=== PATIENT | female | born 1995 | race Caucasian/White ===

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

== ENCOUNTER 2017-04-10 02:09 | Emergency (ER) | payer OTHER ==
[~2017-04-10] VITALS: Ht 172.7 cm; Wt 89.7 kg
[~2017-04-10 02:09] MED LIST: AZITTAB PO; DIPH1TAB PO; PRED10TA PO
[2017-04-10 02:14] VITALS: Ht 172.7 cm; Wt 89.7 kg
[2017-04-10] MEDS ORDERED: PRLSR20 PO (02:34)
[2017-04-10] MEDS ORDERED: VITACAP26 PO (02:35)
[2017-04-10] MEDS ORDERED: FERR18TA2 PO (02:36)
[2017-04-10] MEDS ORDERED: CEFDINIR 300 MG CAP PO STA (02:52)
[2017-04-10] MEDS ORDERED: CEFD300C2 PO (03:10)
[2017-04-10] MEDS ORDERED: PRED50TA PO (03:10)
--- NOTE | 2017-04-10 03:11 | EMERGENCY ROOM VISIT NOTE ---
History First contact with patient: 02:16 Chief Complaint: SORETHROAT Stated Complaint: SWOLLEN TONSILS,SORETHROAT History of Present Illness The patient is a 21 year old female who presents to the Emergency Room with complaints of gradually worsening throat pain since yesterday afternoon. Since the time of onset, patient has continued to have difficulty swallowing as her tonsils feel swollen and "scratchy". She now states that she seems to be having trouble breathing, due to the swelling, and the front of her neck is tender. Patient states that she has felt chilled but she denies having a fever. She does state that she has had fullness to her midchest, which worsens when standing, but she believes that this is related to her throat pain. She denies cough, feeling short of breath, or having pain radiating down her arms or through to her back. Patient states that she has a history of strep throat and mononucleosis in November. Her symptoms today feel similar to that time. She denies abdominal pain, nausea, vomiting, diarrhea or urinary symptoms. Patient states that she came to the ED this evening because she was having increased pain and difficulty swallowing, which has made it hard for her to take medications PO at home. Review of Systems A complete 10 point review of systems was reviewed with the patient with pertinent positives and negatives as per history of present illness. All else were negative. Past Medical/Surgical History Medical Problems: (1) GERD (gastroesophageal reflux disease) (2) Mononucleosis (3) Strep pharyngitis Social History Smoking Status: Never Smoker Marital Status: single Housing Status: lives with family Occupation Status: student Current/Historical Medications Scheduled Cefdinir (Omnicef), 1 CAP PO BID Ferrous Fumarate (Iron), Unknown Dose PO DAILY Omeprazole (Prilosec), Unknown Dose PO BID Prednisone (Prednisone), 50 MG PO DAILY Vitamins C & E (Vitamin C), 1 CAP PO DAILY Allergies Coded Allergies: Amoxicillin (Verified Allergy, Intermediate, Rash/Hives, 04/10/17) Physical Exam Vital Signs Date Time Temp Pulse Resp B/P (MAP) Pulse Ox O2 Delivery O2 Flow Rate FiO2 04/10/17 03:39 36.7 68 18 126/69 98 04/10/17 02:14 36.7 68 18 99 Room Air 04/10/17 02:14 99 Room Air Physical Exam VITALS: Vitals are noted on the nurse's note and reviewed by myself. Vital signs stable. GENERAL: This is a 21-year-old female, in no acute distress, nondiaphoretic, well-developed well-nourished. SKIN: The skin was without rashes. EARS: External auditory canals clear, tympanic membranes pearly mahajan without erythema or effusion bilaterally. EYES: Pupils equal round and reactive to light and accommodation. MOUTH: Mucous membranes moist. Tonsils are enlarged and erythematous bilaterally. There is exudate present on the right tonsil. No evidence of peritonsillar abscess. Airway patent. NECK: Supple without nuchal rigidity. Tender anterior lymphadenopathy. HEART: Regular rate and rhythm without murmurs gallops or rubs. LUNGS: Clear to auscultation bilaterally without wheezes, rales or rhonchi. NEURO: Patient was alert and oriented to person place and time. Medical Decision & Procedures Medications Administered Medications (Trade) Dose Ordered Sig/Manuel Route Start Time Stop Time Status Last Admin Dose Admin Cefdinir (Omnicef Cap) 300 mg ONE STAT PO 04/10/17 02:52 04/10/17 02:54 DC 04/10/17 03:32 300 MG Prednisone (PredniSONE TAB) 50 mg NOW STAT PO 04/10/17 02:52 04/10/17 02:54 DC 04/10/17 03:33 50 MG Medical Decision Differential diagnosis includes strep pharyngitis, mononucleosis, viral pharyngitis, retropharyngeal abscess, among others. The patient is a 21-year-old female who presents today complaining of sore throat. Rapid strep was negative, however exam consistent with strep pharyngitis and I will treat with antibiotics and steroids. Patient was instructed on conservative measures. She should follow-up with her primary care provider for further evaluation or return here for any worsening of her current condition. No evidence of peritonsillar abscess on exam. Based on the patient's presentation and work up, I feel the patient is stable for outpatient treatment. The patient was educated to return to the emergency department for any worsening of their current condition or new/concerning symptoms. She will follow up with her PCP. Medication reconciliation: I attest that I have personally reviewed the patient 's current medication list. Blood pressure screening: Patient was found to have normal blood pressure on screening and does not require follow-up. Impression Primary Impression: Acute pharyngitis Departure Information Dispostion Home / Self-Care Condition GOOD Prescriptions Prednisone (Prednisone) 50 Mg Tab 50 MG PO DAILY for 3 Days, #3 TAB Prov: Shannon Powell PA-C 04/10/17 Cefdinir (OMNICEF) 300 Mg Cap 1 CAP PO BID for 7 Days, #14 CAP Prov: Shannon Powell PA-C 04/10/17 Referrals Rod Hatch M.D. (PCP) Patient Instructions My [facility] Additional Instructions You were seen in the emergency department for your sore throat. The results of your rapid strep screen were found to be negative. You will be contacted in 48- 72 hrs with the results of your pending strep culture. You were prescribed Omnicef to be taken twice daily for 7 days. This is an antibiotic. All antibiotics have the potential to cause diarrhea. Stop this medication and contact a medical provider if you were to develop any significant adverse side effects including: wheezing, shortness of breath, passing out, vomiting, or a diffuse rash. Always take antibiotics as directed and COMPLETE the ENTIRE course regardless of the improvement of your symptoms. Prednisone as prescribed. For pain and fever control, you can use the following [id number] medicines (if >12 yo): - Regular strength (325mg/tab) Tylenol (acetaminophen) 2 tabs every 4-6 hours as needed. Do not exceed 12 tablets in a 24 hour period. Avoid taking more than 4 grams (4000 mg) of Tylenol per day. This includes any other sources of acetaminophen you may take on a regular basis. - Regular strength (200 mg/tab) Advil (ibuprofen) 1-2 tabs every 4-6 hours as needed. Do not exceed a dose of 3200 mg per day. - For best results, alternate dosing of Tylenol and Advil. In addition to your prescribed medications, you can also use the following home remedies: - Warm salt-water gargles 3 times per day can soothe your throat and help to fight infection. - Warm tea with honey can soothe your throat. Return to the emergency department if your symptoms persist or worsen over the next 2-3 days despite treatment course outlined above. Return to the emergency department if you develop the following symptoms of: inability to swallow solids , liquids, or drool; excessive wheezing or inability to catch your breath; or intractable fever or pain. Follow up with your primary care provider in 2-3 days from today's emergency department visit. Problem Qualifiers Primary Impression: Acute pharyngitis Pharyngitis/tonsillitis etiology: unspecified etiology Qualified Codes: J02.9 - Acute pharyngitis, unspecified
[2017-04-10 03:39] VITALS: BP 126/69; PULSE 68; TEMP 36.7; O2SAT 98
--- NOTE | 2017-04-12 17:48 | Pharmacy Progress Note ---
ED Pharmacist Progress Note Date of Service: Apr 12, 2017. Patient's mother called with concerns that her daughter may not have been prescribed the correct ABX for "strep throat". I reviewed the patient's record and the patient's back-up GAS cx is growing Grp B Strep. She was prescribed Cefdinir which would cover Grp-B strep if this was the infecting organism. Mother was satisfied with this information.
[2017-05-10] MEDS ORDERED: IRON PO (15:47)
[2017-05-10] MEDS ORDERED: VITAMIN C PO (15:47)
== END 2017-04-10 03:35 | disposition home or self-care (01) ==
LOC: C.EDB 02:11
DX: J02.9 Acute pharyngitis, unspecified (principal); K21.9 Gastro-esophageal reflux disease without esophagitis; Z79.899 Other long term (current) drug therapy

== ENCOUNTER → 2017-05-12 | Day surgery (SDC) | payer OTHER ==
[2017-05-10 15:47] VITALS: Ht 174 cm; Wt 86.8 kg
[~2017-05-12] VITALS: Ht 174 cm; Wt 86.8 kg
[~2017-05-12] MED LIST changes: +ATROPINE SULFATE 0.1 MG/ML 5ML SYR IV PRN; -AZITTAB PO; +BACITRACIN/POLYMYXIN B OINT 15 GM TUBE EXT ONE; +DEXAMETHASONE SOD INJ 4 MG/ML VIAL IV PRN; +DEXAMETHASONE SOD INJ 4 MG/ML VIAL ONE; -DIPH1TAB PO; +EpHEDrine SULFATE INJ 50 MG/ML AMP IV PRN; +FENTANYL CITRATE INJ 50 MCG/1 ML 2 ML VIAL IV PRN; +FENTANYL CITRATE INJ 50 MCG/1 ML 2 ML VIAL ONE; +IRON PO; +KETOROLAC TROMETHAMINE 30 MG/ML VIAL IV. PRN; +LABETALOL HCL IV 5 MG/ML 20ML IV PRN; +LACTATED RINGER'S 1000ML 1,000 ML IV SCH; +LIDOCAINE 2% JELLY 5 ML TUBE EXT ONE; +LIDOCAINE HCL 2% 2 ML VIAL (20MG/ML) ONE; +METOCLOPRAMIDE HCL INJ 5 MG/ML 2 ML VIAL IV PRN; +MIDAZOLAM HCL 1 MG/ML 2ML VIAL ONE; +MoRPHine SULFATE 10 MG/ML CARP/VIAL IV PRN; +ONDANSETRON INJ 2 MG/ML 2 ML VIAL IV PRN; +ONDANSETRON INJ 2 MG/ML 2 ML VIAL ONE; +OXYCODONE HCL SOLN 5 MG/5 ML UDC PO PRN; +OXYMETAZOLINE HCL 0.05% NA SPR 15 ML BTL ONE; +PHENYLEPHRINE 100MCG/ML 5ML SYR IV PRN; -PRED10TA PO; +PROPOFOL IV EMULSION 10 MG/ML 20 ML VIAL IV ONE; +VITAMIN C PO
--- NOTE | 2017-05-12 06:38 | History & Physical Bridge - [place] ---
H&P Re-Evaluation Bridge Note: I have examined the patient, reviewed the History & Physical and in the interval since the performance of the History & Physical I have noted the following changes of clinical significance: No changes noted
--- NOTE | 2017-05-12 08:38 | [facility] Operative Report ---
Operative Report Operative Date May 12, 2017. Pre-Operative Diagnosis Recurrent Acute Tonsillitis, Tonsillar Hypertrophy Post-Operative Diagnosis same Procedure(s) Performed Tonsillectomy Surgeon Dr. Jv Fang Animal Humane Agent Supervisor Surgeon(s) 0 Estimated Blood Loss 5ML Findings 1. 3+ TONSILS Specimens A. Right Tonsil B. Left Tonsil I attest to the content of the Intraoperative Record and any orders documented therein. Any exceptions are noted below.
--- NOTE | 2017-05-12 08:40 | Discharge Instructions ---
Discharge Instructions Date of Service May 12, 2017. Admission Reason for Admission: Rec Acute Tonsillitis, Tonsillar Hypertrophy Discharge Discharge Diagnosis / Problem: SAME Discharge Goals Goal(s): Therapeutic intervention Activity Recommendations Activity Limitations: as noted below LIGHT ACTIVITY FOR 2 WEEKS AND NO DRIVING WHILE ON NARCOTICS . Current Hospital Diet Patient's current hospital diet: Full Liquid Diet Discharge Diet Recommended Diet: Full Liquid Diet Diet Texture: Mechanical Soft (ground) Procedures Procedures Performed: Tonsillectomy Pending Studies Studies pending at discharge: no Medical Emergencies . Who to Call and When: Medical Emergencies: If at any time you feel your situation is an emergency, please call 911 immediately. . Non-Emergent Contact Non-Emergency issues call your: Surgeon . . "Provider Documentation" section prepared by Alex Fang. . VTE Core Measure Inpt VTE Proph given/why not?: SCD's
--- NOTE | 2017-05-12 09:36 | OPERATIVE REPORT ---
DATE OF OPERATION: 05/12/2017 PREOPERATIVE DIAGNOSES: 1. Recurrent acute tonsillitis. 2. Tonsillar hypertrophy. POSTOPERATIVE DIAGNOSES: 1. Recurrent acute tonsillitis. 2. Tonsillar hypertrophy. PROCEDURE: Bilateral tonsillectomy. SURGEON: Dr. Alex Fang. ANESTHESIA: General endotracheal. ESTIMATED BLOOD LOSS: 5 mL. FINDINGS: 1. Normal palate. 2. 3+ cryptic tonsils bilaterally. SPECIMENS: Right and left tonsil for permanent pathological assessment. COMPLICATIONS: None. INDICATIONS FOR THE PROCEDURE: The patient is a 21-year-old female with the above-mentioned history, presents for the above-mentioned procedure on an outpatient elective basis. DESCRIPTION OF PROCEDURE: After an informed consent was obtained from the patient, the patient was wheeled to the operating room and placed on the operating table in the supine position. Monitors were placed. After induction of general endotracheal anesthesia, the table was turned 90 degrees. The patient's head and neck were gently extended. Antibiotic ointment was applied to the lips. A mouth gag was carefully inserted, opened, and stabilized on a roll of towels. The palate was inspected and this was found to be normal. An Allis clamp was used to grasp the right tonsil in the superior pole and Bovie electrocautery was used to remove the tonsil in the capsular plane with care to preserve the underlying mucosa and musculature of the anterior and posterior tonsillar pillars. The left tonsil was then removed in a similar fashion. Intraoperative findings were 3+ cryptic tonsils bilaterally. These were sent separately for permanent pathologic assessment. The mouth gag was released for 1 minute. This was reopened and hemostasis was confirmed. An orogastric tube was placed and the stomach was suctioned free of any stomach contents. This marked the end of the case. The patient tolerated the procedure well. There were no apparent complications. The patient was extubated and transferred to recovery room in stable condition. I attest to the content of the Intraoperative Record and any orders documented therein. Any exception s are noted below.
--- NOTE | 2017-05-12 09:58 | Anesthesia Progress Nt - [facility] ---
Anesthesia Post Op Note Date & Time May 12, 2017 at 09:58 Vital Signs Pain Intensity: 7.0 Vital Signs Past 12 Hours Date Time Temp Pulse Resp B/P (MAP) Pulse Ox O2 Delivery O2 Flow Rate FiO2 05/12/17 09:41 68 18 138/89 (105) 100 Room Air 05/12/17 09:34 36.4 71 16 140/82 100 Room Air 05/12/17 09:31 140/82 05/12/17 09:27 73 20 05/12/17 09:27 76 20 98 05/12/17 09:26 140/75 05/12/17 09:22 77 21 100 05/12/17 09:22 76 21 05/12/17 09:21 113/84 05/12/17 09:17 47 7 05/12/17 09:17 47 7 100 05/12/17 09:16 132/85 05/12/17 09:12 66 23 100 05/12/17 09:12 65 23 05/12/17 09:11 134/71 05/12/17 09:09 60 11 05/12/17 09:09 60 11 100 05/12/17 09:06 144/74 05/12/17 09:04 73 17 100 05/12/17 09:04 74 17 05/12/17 08:59 75 17 100 05/12/17 08:59 74 17 05/12/17 08:56 125/65 05/12/17 08:54 56 14 100 05/12/17 08:54 56 14 05/12/17 08:51 126/79 05/12/17 08:49 70 3 05/12/17 08:49 70 3 116/86 100 05/12/17 08:49 36.0 72 12 116/84 100 Humidified Oxygen 6 Mask 05/12/17 06:33 36.8 72 16 142/77 (98) 99 Room Air Notes Mental Status: alert / awake / arousable, participated in evaluation Pt Amnestic to Procedure: Yes Nausea / Vomiting: adequately controlled Pain: adequately controlled Airway Patency, RR, SpO2: stable & adequate BP & HR: stable & adequate Hydration State: stable & adequate Anesthetic Complications: no major complications apparent
[2017-05-12 10:17] VITALS: BP 138/82; PULSE 56; TEMP 36.2; O2SAT 99
== END | disposition home or self-care (01) ==
LOC: X.SURG 06:25
DX: J03.91 Acute recurrent tonsillitis, unspecified (principal); K21.9 Gastro-esophageal reflux disease without esophagitis; Z87.891 Personal history of nicotine dependence; Z79.899 Other long term (current) drug therapy

== ENCOUNTER → 2017-06-23 | Outpatient (CLI) | payer OTHER ==
[~2017-06-23] MED LIST changes: -ATROPINE SULFATE 0.1 MG/ML 5ML SYR IV PRN; -BACITRACIN/POLYMYXIN B OINT 15 GM TUBE EXT ONE; -DEXAMETHASONE SOD INJ 4 MG/ML VIAL IV PRN; -DEXAMETHASONE SOD INJ 4 MG/ML VIAL ONE; -EpHEDrine SULFATE INJ 50 MG/ML AMP IV PRN; -FENTANYL CITRATE INJ 50 MCG/1 ML 2 ML VIAL IV PRN; -FENTANYL CITRATE INJ 50 MCG/1 ML 2 ML VIAL ONE; -KETOROLAC TROMETHAMINE 30 MG/ML VIAL IV. PRN; -LABETALOL HCL IV 5 MG/ML 20ML IV PRN; -LACTATED RINGER'S 1000ML 1,000 ML IV SCH; -LIDOCAINE 2% JELLY 5 ML TUBE EXT ONE; -LIDOCAINE HCL 2% 2 ML VIAL (20MG/ML) ONE; -METOCLOPRAMIDE HCL INJ 5 MG/ML 2 ML VIAL IV PRN; -MIDAZOLAM HCL 1 MG/ML 2ML VIAL ONE; -MoRPHine SULFATE 10 MG/ML CARP/VIAL IV PRN; -ONDANSETRON INJ 2 MG/ML 2 ML VIAL IV PRN; -ONDANSETRON INJ 2 MG/ML 2 ML VIAL ONE; -OXYCODONE HCL SOLN 5 MG/5 ML UDC PO PRN; -OXYMETAZOLINE HCL 0.05% NA SPR 15 ML BTL ONE; -PHENYLEPHRINE 100MCG/ML 5ML SYR IV PRN; -PROPOFOL IV EMULSION 10 MG/ML 20 ML VIAL IV ONE
== END | disposition home or self-care (01) ==
LOC: C.RDSM 13:00
PROVIDERS: ATTEND Family Medicine Sports Medicine
DX: M25.562 Pain in left knee (principal)

== ENCOUNTER 2017-11-15 21:13 | Emergency (ER) | payer OTHER ==
[~2017-11-15] VITALS: Ht 172.7 cm; Wt 90.9 kg
[2017-11-15 21:53] VITALS: Ht 172.7 cm; Wt 90.9 kg
[2017-11-15] MEDS ORDERED: ACETAMINOPHEN 500 MG TAB PO STA (21:56)
[2017-11-15] MEDS ORDERED: ACETAMINOPHEN 500 MG TAB PO ONE (21:57)
[2017-11-15 22:30] LABS: INFLUENZA B ANTIGEN Neg for Influ B (NEG)
[2017-11-15] MEDS ORDERED: SODIUM CHLORIDE 0.9% 1000ML 2,000 ML IV STA (22:52)
[2017-11-15] MEDS ORDERED: KETOROLAC TROMETHAMINE 30 MG/ML VIAL IV STA (22:52)
[2017-11-15] MEDS ORDERED: VITACAP26 PO (23:22)
[2017-11-15] MEDS ORDERED: IRON1CAP2 PO (23:22)
[2017-11-15 23:42] LABS: BASO % 0.3 %; BASO ABS # 0.01 K/uL (0-0.2); HEMATOCRIT 38.6 % (37-47); HEMOGLOBIN 13.3 g/dL (12.0-16.0); LYMPH % 28.9 %; MEAN CELL VOLUME 89.1 fL (80-100); MEAN CORPUSCULAR HEMOGLOBIN 30.7 pg (25-34); MEAN CORPUSCULAR HGB CONC 34.5 g/dl (32-36); MEAN PLATELET VOLUME 9.5 fL (7.4-10.4); MONO % 17.3 %; MONO ABS # 0.66 K/uL (0.11-0.59); NEUT % 53.5 %; NEUT ABS # 2.04 K/uL (1.4-6.5); PLATELET COUNT 165 K/uL (130-400); RED CELL DISTRIBUTION WIDTH CV 12.7 % (11.5-14.5); RED CELL DISTRIBUTION WIDTH SD 41.5 fL (36.4-46.3); WHITE BLOOD COUNT 3.81 K/uL (4.8-10.8)
[2017-11-16 00:09] LABS: ALBUMIN 3.8 gm/dl (3.4-5.0); CALCIUM 8.9 mg/dl (8.5-10.1); CREATININE 0.89 mg/dl (0.60-1.20); POTASSIUM 3.2 mmol/L (3.5-5.1)
[2017-11-16 00:12] LABS: TOTAL PROTEIN 7.5 gm/dl (6.4-8.2)
[2017-11-16] MEDS ORDERED: POTASSIUM CHLORIDE 10 MEQ TABCR PO STA (00:44)
[2017-11-16] MEDS ORDERED: ONDANSETRON HOME PACK 4MG OD TAB PO ONE (00:45)
[2017-11-16] MEDS ORDERED: OSEL75CA12 PO (01:01)
[2017-11-16 01:07] VITALS: BP 104/56; PULSE 90; O2SAT 98
[2017-11-16 01:10] VITALS: TEMP 36.7
--- NOTE | 2017-11-16 03:51 | EMERGENCY ROOM VISIT NOTE ---
History First contact with patient: 22:40 Chief Complaint: FLU LIKE SX Stated Complaint: HEADACHE,ABDPAIN,BACKPAIN,EARPAIN,CHILLS,DIZZY History of Present Illness The patient is a 22 year old female who presents to the Emergency Room with complaints of flulike illness for the past day and a half who has been having chronic back pain for the past few months who has been seeing a chiropractor. Patient also has a right upper quadrant discomfort. Patient also complains of nausea. Patient denies chest pain, dyspnea, neck stiffness, sore throat, cough , urinary symptoms, diarrhea. Patient has a lack of appetite. No flu shot. Review of Systems An 10 system review of systems was completed with positives and pertinent negatives listed in the HPI. Past Medical/Surgical History Medical Problems: (1) GERD (gastroesophageal reflux disease) (2) Mononucleosis (3) Strep pharyngitis Social History Smoking Status: Never Smoker Marital Status: single Housing Status: lives with family Occupation Status: student Current/Historical Medications Scheduled Iron Combinations (Iron Complex), 1 CAP PO DAILY Oseltamivir (Tamiflu), 75 MG PO BID Vitamins C & E (Vitamin C), 1 CAP PO DAILY Physical Exam Vital Signs Date Time Temp Pulse Resp B/P (MAP) Pulse Ox O2 Delivery O2 Flow Rate FiO2 11/16/17 01:10 36.7 11/16/17 01:07 90 18 104/56 98 Room Air 11/15/17 23:36 Room Air 11/15/17 22:44 37.9 96 18 126/65 96 Room Air 11/15/17 21:53 38.3 115 18 130/74 96 Room Air Physical Exam VITALS: Vitals are noted on the nurse's note and reviewed by myself. Vital signs febrile. GENERAL: Pleasant female, in no acute distress, nondiaphoretic, well-developed well-nourished. SKIN: The skin was without rashes, erythema, edema, or bruising. There is no tenting of the skin. Capillary reflex less than 2 seconds. HEAD: Normocephalic atraumatic. EARS: External auditory canals clear, tympanic membranes pearly mahajan without erythema or effusion bilaterally. EYES: Pupils equal round and reactive to light and accommodation. Conjunctivae without injection, sclerae without icterus. Extraocular movements intact. NOSE: Patent, turbinates without inflammation or discharge. No sinus tenderness. MOUTH: Mucous membranes mildly dry, pharynx without erythema or exudate. Uvula midline. Airway patent. Tongue does not deviate. NECK: Supple without nuchal rigidity. No lymphadenopathy. No thyromegaly. Cervical spine is nontender. No JVD. HEART: Regular rate and rhythm without murmurs gallops or rubs. LUNGS: Clear to auscultation bilaterally without wheezes, rales or rhonchi. No dullness to percussion. No retractions or accessory muscle use. ABDOMEN: Positive bowel sounds x 4. Normal tympanic percussion. Soft, minimally tender epigastric right upper quadrant, without masses or organomegaly. Edwards sign negative. No guarding or rebound tenderness. MUSCULOSKELETAL: No muscle atrophy, erythema, or edema noted. No thoracic or lumbar tenderness on exam. No CVA tenderness NEURO: Patient was alert and oriented to person place and time. No focal neurological deficits. Medical Decision & Procedures Laboratory Results 11/15/17 23:25 Red Blood Count 4.33, Mean Corpuscular Volume 89.1, Mean Corpuscular Hemoglobin 30.7, Mean Corpuscular Hemoglobin Concent 34.5, Mean Platelet Volume 9.5, Neutrophils (%) (Auto) 53.5, Lymphocytes (%) (Auto) 28.9, Monocytes (%) (Auto) 17.3, Eosinophils (%) (Auto) 0.0, Basophils (%) (Auto) 0.3, Neutrophils # (Auto ) 2.04, Lymphocytes # (Auto) 1.10, Monocytes # (Auto) 0.66, Eosinophils # (Auto ) 0.00, Basophils # (Auto) 0.01 11/15/17 23:25 Test 11/15/17 21:59 11/15/17 23:25 11/15/17 23:30 Influenza Type A Antigen POS for Influ A (NEG) Influenza Type B Antigen Neg for Influ B (NEG) White Blood Count 3.81 K/uL (4.8-10.8) Red Blood Count 4.33 M/uL (4.2-5.4) Hemoglobin 13.3 g/dL (12.0-16.0) Hematocrit 38.6 % (37-47) Mean Corpuscular Volume 89.1 fL (80-100) Mean Corpuscular Hemoglobin 30.7 pg (25-34) Mean Corpuscular Hemoglobin Concent 34.5 g/dl (32-36) Platelet Count 165 K/uL (130-400) Mean Platelet Volume 9.5 fL (7.4-10.4) Neutrophils (%) (Auto) 53.5 % Lymphocytes (%) (Auto) 28.9 % Monocytes (%) (Auto) 17.3 % Eosinophils (%) (Auto) 0.0 % Basophils (%) (Auto) 0.3 % Neutrophils # (Auto) 2.04 K/uL (1.4-6.5) Lymphocytes # (Auto) 1.10 K/uL (1.2-3.4) Monocytes # (Auto) 0.66 K/uL (0.11-0.59) Eosinophils # (Auto) 0.00 K/uL (0-0.5) Basophils # (Auto) 0.01 K/uL (0-0.2) RDW Standard Deviation 41.5 fL (36.4-46.3) RDW Coefficient of Variation 12.7 % (11.5-14.5) Immature Granulocyte % (Auto) 0.0 % Immature Granulocyte # (Auto) 0.00 K/uL (0.00-0.02) Anion Gap 10.0 mmol/L (3-11) Est Creatinine Clear Calc Drug Dose 118.9 ml/min Estimated GFR () 108.1 Estimated GFR (Non- 93.3 BUN/Creatinine Ratio 16.6 (10-20) Calcium Level 8.9 mg/dl (8.5-10.1) Total Bilirubin 0.3 mg/dl (0.2-1) Direct Bilirubin 0.1 mg/dl (0-0.2) Aspartate Amino Transf (AST/SGOT) 16 U/L (15-37) Alanine Aminotransferase (ALT/SGPT) 18 U/L (12-78) Alkaline Phosphatase 72 U/L (45-117) Total Protein 7.5 gm/dl (6.4-8.2) Albumin 3.8 gm/dl (3.4-5.0) Lipase 105 U/L (73-393) Human Chorionic Gonadotropin, Qual NEG (NEG) Urine Color YELLOW Urine Appearance CLOUDY (CLEAR) Urine pH 5.0 (4.5-7.5) Urine Specific [place] 1.026 (1.000-1.030) Urine Protein NEG (NEG) Urine Glucose (UA) NEG (NEG) Urine Ketones TRACE (NEG) Urine Occult Blood TRACE (NEG) Urine Nitrite NEG (NEG) Urine Bilirubin NEG (NEG) Urine Urobilinogen NEG (NEG) Urine Leukocyte Esterase TRACE (NEG) Urine WBC (Auto) 5-10 /hpf (0-5) Urine RBC (Auto) 5-10 /hpf (0-4) Urine Hyaline Casts (Auto) 1-5 /lpf (0-5) Urine Epithelial Cells (Auto) >30 /lpf (0-5) Urine Bacteria (Auto) 1+ (NEG) Medications Administered Medications (Trade) Dose Ordered Sig/Manuel Route Start Time Stop Time Status Last Admin Dose Admin Acetaminophen (Tylenol Tab) 1,000 mg NOW STAT PO 11/15/17 21:56 11/15/17 21:58 DC 11/15/17 21:56 1,000 MG Sodium Chloride 2,000 ml @ 999 mls/hr Q2H1M STAT IV 11/15/17 22:52 11/16/17 00:52 DC 11/15/17 23:37 999 MLS/HR Ketorolac Tromethamine (Toradol Inj) 30 mg NOW STAT IV 11/15/17 22:52 11/15/17 22:54 DC 11/15/17 23:33 30 MG Potassium Chloride (Klor-Con M10) 30 meq NOW STAT PO 11/16/17 00:44 11/16/17 00:46 DC 11/16/17 00:59 30 MEQ ED Course Prior records/ancillary studies reviewed. Triage Nursing notes reviewed. Additional history obtained from family The patient's history was concerning for fever. Differential diagnosis: Etiologies such as viral syndrome, otitis, pharyngitis, pneumonia, influenza, meningitis, urinary tract infection, sepsis, bacteremia, as well as others were entertained. Physical examination: Patient is alert, oriented and mildly sick appearing ER treatment provided: IV fluids, p.o. fluids, Tylenol, Toradol On reassessment the patient felt better. Diagnostics interpreted by me: The labs revealed positive influenza A Imaging studies: US RUQ: Evaluation limited by gallbladder contraction and patient is not NPO. No evidence of gallstone or pericholecystic fluid. No biliary dilatation. Liver, right kidney, and pancreas are unremarkable. No free fluid. Radiologist: Bridger Henao MD This appears to be consistent with influenza A. Patient is also been having chronic back pain she was informed to maintain a healthy weight and to do core strength activities like yoga and/or Pilates for her back pain and see family care for referral to physical therapy. Patient had no signs of meningitis. She is well-appearing she felt much better to be medicated as above. She is advised to rest, stay well hydrated and take medicines as directed. She was offered Tamiflu and informed of the side effects and efficiency of the medication. They requested the option of possibly feeling a Tamiflu prescription and this was sent to the pharmacy. Patient is in the low risk group as she has no medical problems and is a young healthy 22-year-old. Patient did not have acute abdomen on exam. She is able to ambulate without difficulties. She had no deficits on exam. By the evaluation outlined above emergent etiologies such as otitis, pharyngitis, pneumonia, meningitis, urinary tract infection, sepsis, bacteremia, as well as others were deemed relatively unlikely. The pt informed about the findings as listed above. All questions were answered and pleased with the treatment. Return instructions were outlined and the patient was discharged in stable condition. Outpatient prescription management: tamiflu Referral: The patient was referred back to their primary care physician for follow-up in 2 to 3 days for a recheck of the current condition. Medical Decision As above Medication Reconcilliation Current Medication List: was personally reviewed by me Blood Pressure Screening Patient's blood pressure: Normal blood pressure Impression Primary Impression: Influenza Additional Impressions: Hypokalemia Back pain Departure Information Dispostion Home / Self-Care Condition GOOD Prescriptions Oseltamivir (Tamiflu) 75 Mg Cap 75 MG PO BID for 5 Days, #10 CAP Prov: Hilda Castillo .SU 11/16/17 Forms HOME CARE DOCUMENTATION FORM, School Instructions, Return To School: 5 days Work Instructions, Return To Work: 5 days IMPORTANT VISIT INFORMATION Patient Instructions Back Pain - [facility], [facility], ED Flu Additional Instructions No work or school until you are 24 hours fever free as you are highly contagious. Tamiflu 75 m tablet twice a day for 5 days.Any medication can cause an allergic reaction, stop the pills immediately and return to the ER for rash, hives, breathing difficulties, or swelling. Acetaminophen(Tylenol) may be used for fever or pain. Use 1000mg every six hours as needed. Avoid using more than 3000mg in a 24 hour period. (AND/OR) Ibuprofen(Motrin, Advil) may be used for fever or pain. Use 600mg every six hours as needed. Take with food. Avoid using more than 2400mg in a 24 hour period. Do not use 2400mg per day for more than three consecutive days without physician direction. Prolonged inappropriate use can lead to stomach upset or ulcers. Afrin nasal spray: 2-3 sprays to each nostril twice daily as needed for congestion. Do not use for more than 3-4 days because it can lead to worsening rebound congestion. Pseudoephedrine(Sudaphed): 30-60mg every 6 hours as needed for nasal congestion. Do not take this with other stimulant products or supplements. Albuterol Inhaler: Take 2 puffs four times daily for seven days, then as needed. Rest and drink plenty of fluids. Controlling your fever with Tylenol and Ibuprofen as above will make you feel better. Wash your hands after nose blowing, sneezing, or coughing. Most germs are spread through contact, therefore improper hygiene may result in your close contacts and loved ones becoming ill just like you. Continue current medications. Return to the ER for severe headache, neck stiffness, chest pain, difficulty breathing, fevers, vomiting, worsening of your condition, or as needed. Follow up with your primary physician this week for a recheck of your current condition. Work Instructions Return To Work: 5 days School Instructions Return To School: 5 days Problem Qualifiers
--- NOTE | 2017-11-16 06:49 | DIAGNOSTIC IMAGING REPORT ---
GALLBLADDER-ABD LIMITED HISTORY: 22 years-old Female ruq pain acute right upper quadrant abdominal pain with flulike symptoms COMPARISON: None available TECHNIQUE: Multiple real-time sonographic images of the abdominal right upper quadrant were obtained assessing grayscale appearance and color flow FINDINGS: The pancreas appears unremarkable. The liver is within normal limits without focal mass or intrahepatic biliary ductal dilation. The gallbladder is mildly contracted without shadowing cholelithiasis or pericholecystic fluid. Common bile duct measures 3 mm, within normal limits. Right kidney is unremarkable without hydronephrosis, 12.9 cm in length. IMPRESSION: 1. Contracted gallbladder without cholelithiasis or sonographic evidence of acute cholecystitis. 2. No biliary ductal dilation. The above report was generated using voice recognition software. It may contain grammatical, syntax or spelling errors. Electronically signed by: Kenny Mendoza M.D. 11/16/2017 6:48 AM Dictated Date/Time: 11/16/2017 6:46 AM
== END 2017-11-16 01:10 | disposition home or self-care (01) ==
LOC: C.EDB 21:15
DX: J10.1 Influenza due to other identified influenza virus with other respiratory manifestations (principal); E87.6 Hypokalemia; M54.9 Dorsalgia, unspecified; G89.29 Other chronic pain; K21.9 Gastro-esophageal reflux disease without esophagitis; Z79.899 Other long term (current) drug therapy

== ENCOUNTER 2019-04-18 07:44 | Inpatient (IN) ==
[2019-04-18] MEDS ORDERED: OXYTOCIN 30 UNITS/500 ML BAG IV PRN ×4 (08:21→23:29)
--- NOTE | 2019-04-18 08:50 | History & Physical Report ---
Date of Service April 18, 2019 Assessment & Plan (1) Term : 23yo at 41.3 weeks GA. Late term IOL 1. Fetus: Cat 1 2. Labor: Will augment with oxytocin. AROM when able. 3. Vitals: WNL 4. GBS - 5: Rh+ History of Present Illness Primary Care Provider: Starr Rivera, DO 23yo at 41.3 weeks GA. IOL for late term . Irregular contractions. No VB, LOF, good FM. course complicated by incarceration during portions of the . Allergies Allergy/AdvReac Type Severity Reaction Status Date / Time amoxicillin Allergy Intermediate Rash/Hives Verified 11/15/17 23:20 Home Medications Home Medications Medication Instructions Recorded Confirmed Type ferrous sulfate 325 mg (65 mg 325 mg PO DAILY #90 tab 04/17/19 04/18/19 Rx iron) tablet vit-iron fum-folic ac 1 tab PO DAILY 04/18/19 04/18/19 History [ Vitamin] Patient History Medical History Laryngopharyngeal reflux (Acute) Anxiety and depression (Acute) Anemia H/O wisdom tooth extraction Sinus venosus defect Surgical History History of tonsillectomy and adenoidectomy Social History Preferred Language: Irish Communication Ability: Effective Travel Attendants Required: No Beliefs That Will Affect Care: None marital status: Single Current Living Situation: Parent Other Information That Helps Us Care for You: No Feels Safe at Home: Yes Safety Concerns: Feels Safe At This Time Smoking Status: Never smoker Hx Alcohol Use: No Hx Substance Use: No Physical Exam Gastrointestinal (Abdomen): normal bowel sounds, soft, nontender, no hepatosplenomegaly Genitourinary: OB Exam Abdomen: + vertex and + regular contractions Manual OB Exam: + cervical dilation 2 cm, + cervical effacement 50% and + station high OB Exam Monitor Tracing: + external FHT monitor used, + external uterine monitor used, + category I and + normal FHT variability Results & Data Vital Signs (Past 12 Hours) Vital Signs Temp Pulse Resp BP 04/18/19 08:12 36.7 C 85 18 128/77 04/18/19 08:11 85 128/77
[2019-04-18 09:05] LABS: Hematocrit (blood only) 38.7 % (37-47); Hemoglobin 13.3 g/dL (12.0-16.0); Mean Corpuscular Volume 90.6 fL (80-100); Mean Platelet Volume 9.9 fL (7.4-10.4); Platelet Count 172 K/uL (130-400); RDW Coefficient of Variation 13.2 % (11.5-14.5); RDW Standard Deviation 43.1 fL (36.4-46.3); Red Blood Count 4.27 M/uL (4.2-5.4)
[2019-04-18 09:21] LABS: Mean Corpuscular Hgb Conc 34.4 g/dL (32-36)
[2019-04-18] MEDS: LACTATED RINGER'S 1,000 ML IV PRN ×3 (09:23→18:54)
[2019-04-18] MEDS ORDERED: BUTORPHANOL TARTRATE 2 MG/ML VIAL IV PRN (13:17)
[2019-04-18] MEDS ORDERED: BUPIVACAINE 0.25% 30 ML VIAL ONE (15:51)
[2019-04-18] MEDS ORDERED: fentaNYL 2MCG/ML ROPIV 1.25MG/ML 100 ML BAG EPI ONE (15:52)
[2019-04-18] MEDS ORDERED: ePHEDrine sulfate 50 MG/ML AMP ONE (15:52)
[2019-04-18] MEDS ORDERED: fentaNYL citrate 100 MCG/2 ML VIAL ONE (15:52)
--- NOTE | 2019-04-18 16:14 | Anesthesiology Consultation ---
Date of Service April 18, 2019 Assessment & Plan Chart Review Chart Review: Acceptable Risk for Surgery, Patient NOT seen in Pre Admission Testing and Acceptable Risk for Labor Epidural Consults Requested none ASA ASA3 Proposed Anesthesia Anesthesia Type: Labor Epidural and CSE Risk / Benefits Reviewed With: PT / POA / Parent / Guardian, Accepts Plan and Informed Consent Obtained History Height/Weight Height: 5 ft 8 in Weight: 96.615 kg Allergies Allergy/AdvReac Type Severity Reaction Status Date / Time amoxicillin Allergy Intermediate Rash/Hives Verified 11/15/17 23:20 Medications Home Medications Medication Instructions Recorded Confirmed Last Taken ferrous sulfate 325 mg (65 mg 325 mg PO DAILY #90 tab 04/17/19 04/18/19 04/04/19 21:00 iron) tablet vit-iron fum-folic ac 1 tab PO DAILY 04/18/19 04/18/19 04/17/19 21:00 [ Vitamin] Active Medications Generic Name Dose Route Start Last Admin Trade Name Freq PRN Reason Stop Dose Admin Butorphanol Tartrate 1 mg 04/18/19 13:17 04/18/19 13:29 Stadol IV 05/18/19 13:16 1 mg Q4 PRN Administration Pain Lactated Ringer's 1,000 mls @ 125 mls/hr 04/18/19 08:21 04/18/19 13:43 Lr IV 04/20/19 08:20 125 mls/hr .Q8H PRN Administration L&D Protocol Protocol Oxytocin 30 units in 500 mls @ 10 mls/hr 04/18/19 08:50 04/18/19 12:15 Pitocin IV 04/20/19 08:49 0.6 units/hr .Q24H PRN 10 mls/hr Labor Induction/Augmentation Titration Protocol 0.6 UNITS/HR NPO Date Last Intake of Fluids: 04/18/19 Time Last Intake of Fluids: 10:00 Date Last Intake of Solids: 04/18/19 Time Last Intake of Solids: 07:30 Past Medical History Medical History Laryngopharyngeal reflux (Acute) Anxiety and depression (Acute) Anemia H/O wisdom tooth extraction History of acute bronchitis with bronchospasm History of sunburn Hx of shortness of breath Left knee pain Need for Td vaccine Recurrent acute tonsillitis Sinus venosus defect Tonsillar hypertrophy Past Family History Family History Grandfather (Maternal) Chronic cardiac disorder Stroke FH: deafness or hearing loss Hypertension Sinusitis Grandmother (Maternal) Neuroendocrine cancer Past Surgical History Surgical History H/O oral surgery tooth extraction History of tonsillectomy and adenoidectomy Hx of heart surgery sinus venosis correction Past Anesthesia History No Hx of Anesthesia Complications and No Family Hx of Anesthesia Complications History of PONV No Hx of PONV and No Hx of Motion Sickness Social History Smoking Status: Never smoker Hx Alcohol Use: No Hx Substance Use: No Physical Exam Vital Signs Last Vital Signs Temp 37.0 C 04/18/19 12:19 Pulse 87 04/18/19 16:09 Resp 20 04/18/19 12:19 BP 149/70 H 04/18/19 16:06 Pulse Ox 94 04/18/19 16:09 ENMT Mouth: no dentition abnormality Thyromental Distance: > or= 3.5 Finger Breadths Mallampati Class: III Neck normal visual inspection and trachea midline; neck extension not limited Respiratory normal respiratory effort Auscultation: lungs clear to auscultation bilaterally Cardiovascular Rate/Rhythm: regular rate and regular rhythm Heart Sounds: no murmur Vessels: no carotid bruit Musculoskeletal Spine: lumbar spine normal to inspection; normal cervical ROM Neurologic moves all extremities Motor/Sensory: no sensory deficit Psychiatric Orientation: alert and oriented x 3 Testing Laboratory Results 04/18/19 08:52
[2019-04-18] MEDS ORDERED: DiphenhydrAMINE HCL 50 MG/ML VIAL IV PRN (16:38)
[2019-04-18] MEDS ORDERED: ePHEDrine sulfate 50 MG/ML AMP IV PRN (16:38)
[2019-04-18] MEDS ORDERED: fentaNYL 2MCG/ML ROPIV 1.25MG/ML 100 ML BAG EPI PRN (16:38)
[2019-04-18] MEDS ORDERED: NALOXONE HCL 1 MG in SODIUM CHLORIDE 0.9% 1000ML 1,000 ML IV PRN (16:38)
[2019-04-18] MEDS ORDERED: ONDANSETRON INJ 2 MG/ML 2 ML VIAL IV PRN (16:38)
[2019-04-18] MEDS ORDERED: PROMETHAZINE HCL 25 MG in SODIUM CHLORIDE 0.9% 50 ML IV PRN (16:38)
[2019-04-18] MEDS ORDERED: NALOXONE HCL 0.4 MG/1 ML VIAL/CARP IV PRN (16:38)
[2019-04-18] MEDS ORDERED: NALBUPHINE HCL INJ 10 MG/ML AMP IV PRN (16:38)
--- NOTE | 2019-04-18 17:54 | Labor Progress Brief Note ---
Date of Service April 18, 2019 Subjective Reason For Note: Routine Evaluation Oxytocin discontinued x 1 for prolonged decel following epidural placement. Assessment & Plan (1) Term : 23yo at 41.3 weeks GA. Late term IOL 1. Fetus: Cat 1 2. Labor: Oxytocin. AROM. Progressing 3. Vitals: WNL 4. GBS - 5: Rh+ Physical Exam Genitourinary: OB Exam Abdomen: + vertex and + regular contractions Manual OB Exam: + cervical dilation 5 cm, + cervical effacement 90% and + station -1 OB Exam Monitor Tracing: + external FHT monitor used, + external uterine monitor used, + category I and + normal FHT variability Results & Data Vital Signs (Past 12 Hours) Vital Signs Temp Pulse Resp BP Pulse Ox 04/18/19 17:49 98 H 135/72 04/18/19 17:47 94 H 93 04/18/19 17:46 93 H 96 04/18/19 17:41 69 96 04/18/19 17:36 67 96 04/18/19 17:31 69 96 04/18/19 17:26 71 96 04/18/19 17:21 66 96 04/18/19 17:16 68 98 04/18/19 17:13 71 106/51 L 04/18/19 17:11 67 98 04/18/19 17:06 69 98 04/18/19 17:02 75 110/54 L 04/18/19 17:01 74 97 04/18/19 16:56 78 98 04/18/19 16:51 79 98 04/18/19 16:50 68 99/52 L 04/18/19 16:47 70 107/53 L 04/18/19 16:46 75 98 04/18/19 16:44 70 110/53 L 04/18/19 16:41 64 113/56 L 98 04/18/19 16:40 82 105/52 L 04/18/19 16:38 92 H 108/71 04/18/19 16:36 117 H 104/51 L 96 04/18/19 16:34 89 106/51 L 04/18/19 16:31 94 H 95 04/18/19 16:29 107 H 134/60 04/18/19 16:27 93 H 94 04/18/19 16:26 91 H 146/79 H 95 04/18/19 16:23 96 H 180/89 H 04/18/19 16:22 101 H 94 04/18/19 16:21 91 H 96 04/18/19 16:20 90 146/75 H 04/18/19 16:16 87 96 04/18/19 16:14 86 137/74 94 04/18/19 16:11 85 96 04/18/19 16:09 87 94 04/18/19 16:06 84 149/70 H 96 04/18/19 16:03 104 H 94 04/18/19 16:01 90 97 04/18/19 16:00 78 143/65 H 04/18/19 14:30 74 120/59 L 04/18/19 13:30 71 122/59 L 04/18/19 12:31 73 121/62 04/18/19 12:19 37.0 C 20 04/18/19 11:30 72 114/53 L 04/18/19 10:31 108 H 134/75 04/18/19 09:34 89 135/72 04/18/19 08:12 36.7 C 85 18 128/77 04/18/19 08:11 85 128/77
[2019-04-18] MEDS ORDERED: HYDROCORTISONE ACETATE 25 MG SUPP PR PRN (23:29)
[2019-04-18] MEDS ORDERED: BISACODYL 10 MG SUPP PR PRN (23:29)
[2019-04-18] MEDS ORDERED: SUPERCREAM 0.870% 15 GM JAR EXT PRN (23:29)
[2019-04-18] MEDS ORDERED: BENZOCAINE 20% AER SPR 82.5 GM CAN EXT PRN (23:29)
--- NOTE | 2019-04-19 00:56 | Anesthesia Procedure Note ---
Date of Service April 19, 2019 Anesthesia Post Epidural Note Vital Signs Vital Signs: Temp Pulse Resp BP Pulse Ox 36.8 C 94 H 18 138/63 95 04/18/19 23:15 04/19/19 00:45 04/19/19 00:45 04/19/19 00:45 04/18/19 22:21 Notes Mental Status: alert / awake / arousable Nausea / Vomiting: adequately controlled Pain: adequately controlled Airway Patency, RR, SpO2: stable & adequate BP & HR: stable & adequate Hydration State: stable & adequate Neuraxial Anesthesia: was administered and sensory block is resolving Anesthetic Complications: no major complications apparent Epidural: Removed without complications and With tip intact
[2019-04-19] MEDS: ACETAMINOPHEN 325 MG TAB PO PRN ×3 (01:32→20:13)
--- NOTE | 2019-04-19 01:37 | Delivery Summary ---
DATE OF OPERATION: 04/18/2019 DATE OF SERVICE: 04/18/2019 PROCEDURE: Normal spontaneous vaginal delivery with second degree perineal laceration and bilateral labial and a right vaginal laceration. SURGEON: Espinoza Rubalcava MD PREOPERATIVE DIAGNOSES: 1. Single intrauterine at 41 weeks gestational age. 2. Induction of labor. POSTOPERATIVE DIAGNOSES: 1. Single intrauterine at 41 weeks gestational age. 2. Induction of labor. 3. Delivered. ESTIMATED BLOOD LOSS: 300 mL. DRAINS: Straight cath at the completion of the case with 200 mL of yellow urine. COMPLICATIONS: None. FINDINGS: Viable with weight pending, Apgars of 7 and 9 at 1 and 5 minutes respectively. INDICATIONS: Claire is a 23-year-old G1, P0, admitted at 41 weeks 3 days gestational age for late term induction of labor. At presentation, she was found to be 2 cm dilated, 50% effaced, -3 to 4 station. The patient was started on oxytocin per regular protocol. She underwent artificial rupture of membranes for clear fluid. She received an epidural for anesthesia and progressed in labor to complete-complete +2 station, at which time, she felt the urge to push and pushed for approximately 1 hour and 5 minutes to achieve delivery. DESCRIPTION OF PROCEDURE: The patient progressed to 10 cm dilated, 100% effaced, +2 station, pushed over intact perineum with epidural anesthesia and delivered a viable with weight and Apgars as noted above. Head of the delivered in LELA position, rest into right transverse. No nuchal cord was noted. Body and shoulders quickly followed. The was noted to be vigorous soon after delivery. One minute delayed cord clamping was initiated, after the cord was doubly clamped and cut. Cord blood was then obtained. Attention was then turned to deliver the placenta delivered intact, 3-vessel cord, gentle cord traction. On inspection of the perineum, vagina and cervix, there was noted to be second degree laceration, bilateral labial lacerations and right vaginal laceration. The vaginal lacerations and perineal lacerations were closed with 3-0 Vicryl in continuous running stitch. The labial lacerations were approximated with 3-0 interrupted stitch. Needle, sponge and instrument counts were correct at the completion of the case. I attest to the content of the Intraoperative Record and any orders documented therein. Any exception s are noted below.
--- NOTE | 2019-04-19 05:42 | Obstetrical Progress Note ---
Date of Service <Lázaro Washington MD - Last Filed: 04/19/19 07:16> April 19, 2019 Assessment & Plan <Lázaro Washington MD - Last Filed: 04/19/19 07:16> Day #:: 1 ([23 y/o s/p vaginal delivery @ 41+3] -PPD# 1 - GBS neg., Blood Type A+ - Feels well today. Eating well, voiding well, ambulating well. - Pain well controlled. - Routine post care - After discharge will have [address] Rubalcava.) Subjective <Lázaro Washington MD - Last Filed: 04/19/19 07:16> Ambulation: ambulating normally Voiding: no voiding problems Passing Gas:: Yes Diet Tolerance:: regular diet Lochia:: Small Feeding Type:: breast feeding Current Pain Level(1-10): 0 Physical Exam <Lázaro Washington MD - Last Filed: 04/19/19 07:16> OB PE General: Alert, oriented. No acute distress. Cardiac: Regular rate and rhythm, no murmurs/rubs/gallops. Respiratory: Clear to auscultation anterior and posteriorly, no wheezes/rales/rhonchi. No increased work of breathing. Symmetrical chest rise. No respiratory distress. Abdomen: Soft, nontender, nondistended. Bowel sounds present. Uterus: Uterine fundus firm at the umbilicus. Lower Extremities: No lower extremity edema or swelling. No deep calf pain. Alma's negative bilaterally. OB ROS Denies fever, chills sweats Denies shortness of breath, difficulty breathing, chest pain, palpitations, chest pressure. Denies breast pain. Denies dysuria. Denies headache. Results & Data <Lázaro Washington MD - Last Filed: 04/19/19 07:16> Vital Signs (Past 12 Hours) Vital Signs Temp Pulse Resp BP Pulse Ox 04/19/19 03:00 37.7 C H 80 18 128/79 04/19/19 01:30 90 127/63 04/19/19 01:15 37.0 C 113 H 16 135/70 04/19/19 01:00 102 H 139/67 04/19/19 00:45 94 H 18 138/63 07/19/19 00:30 98 H 135/62 19/19 00:16 100 H 133/62 04/19/19 00:15 18 0719 00:00 102 H 143/67 H 18/19 23:45 105 H 18 147/70 H 18/19 23:30 83 18 131/64 0718/19 23:15 36.8 C 88 18 132/75 0718/19 22:21 129 H 95 1819 22:17 123 H 94 1819 22:16 107 H 95 18/19 22:11 139 H 94 0718/19 22:06 109 H 95 18/19 22:01 135 H 95 18/19 21:56 100 H 93 18/19 21:51 100 H 94 18/19 21:49 119 H 94 18/19 21:46 110 H 95 18/19 21:41 106 H 96 18/19 21:37 89 94 18/19 21:36 101 H 96 18/19 21:32 87 93 0718/19 21:31 88 96 0718/19 21:26 105 H 97 18/19 21:21 103 H 96 0718/19 21:19 82 140/86 94 18/19 21:16 111 H 95 0718/19 21:13 100 H 94 0718/19 21:11 111 H 96 0718/19 21:06 102 H 95 18/19 21:03 93 H 94 18/19 21:01 97 H 94 18/19 20:57 98 H 94 18/19 20:56 111 H 96 0718/19 20:52 95 H 94 0718/19 20:51 92 H 96 0718/19 20:49 97 H 134/79 0718/19 20:46 95 H 94 0718/19 20:41 92 H 92 0718/19 20:36 104 H 94 0718/19 20:31 102 H 95 0718/19 20:26 99 H 95 0718/19 20:25 105 H 94 0718/19 20:21 105 H 94 18/19 20:20 88 131/71 94 07/18/19 20:16 101 H 93 07/18/19 20:11 100 H 94 07/18/19 20:06 90 94 07/18/19 20:02 85 94 07/18/19 20:01 83 94 07/18/19 19:56 91 H 95 07/18/19 19:55 109 H 94 07/18/19 19:51 89 94 07/18/19 19:50 83 94 07/18/19 19:49 84 121/76 07/18/19 19:46 80 95 07/18/19 19:42 99 H 94 07/18/19 19:41 92 H 95 07/18/19 19:36 98 H 95 07/18/19 19:32 89 94 07/18/19 19:31 87 95 07/18/19 19:26 88 95 07/18/19 19:25 93 H 94 07/18/19 19:21 85 95 07/18/19 19:20 86 131/71 94 07/18/19 19:16 73 95 07/18/19 19:11 71 95 07/18/19 19:10 37.3 C 83 18 94 07/18/19 19:06 73 95 07/18/19 19:01 76 95 07/18/19 18:59 89 94 07/18/19 18:56 83 94 07/18/19 18:51 81 93 07/18/19 18:50 90 140/90 07/18/19 18:48 85 94 07/18/19 18:46 94 H 96 0718/19 18:41 90 94 07/18/19 18:39 86 94 07/18/19 18:36 76 94 07/18/19 18:34 84 94 07/18/19 18:31 92 H 96 07/18/19 18:27 78 94 07/18/19 18:26 79 95 07/18/19 18:21 74 94 07/18/19 18:20 82 132/61 07/18/19 18:16 82 95 07/18/19 18:15 78 94 07/18/19 18:11 74 94 07/18/19 18:10 71 94 07/18/19 18:06 84 94 07/18/19 18:04 80 94 07/18/19 18:01 89 96 07/18/19 17:58 93 H 94 04/18/19 17:56 84 95 04/18/19 17:52 100 H 93 04/18/19 17:51 86 95 04/18/19 17:50 37 C 18 04/18/19 17:49 98 H 135/72 04/18/19 17:47 94 H 93 04/18/19 17:46 93 H 96 <Espinoza Rubalcava MD - Last Filed: 04/23/19 15:17> Co-Signing Physician Notes Patient seen and evaluated and agree with the above findings and plan.
[2019-04-19 07:14] LABS: Hematocrit (blood only) 34.9 % (37-47); Hemoglobin 11.8 g/dL (12.0-16.0)
[2019-04-19] MEDS: IBUPROFEN 600 MG TAB PO PRN ×3 (09:04→22:45)
[2019-04-19] MEDS: DOCUSATE SODIUM 100 MG CAP PO SCH ×2 (09:04→20:12)
[2019-04-19] MEDS: PRENATAL VITAMIN 1 TAB PO SCH (09:04)
[2019-04-19] MEDS ORDERED: BISACODYL 5 MG TABEC PO SCH (20:00)
--- NOTE | 2019-04-20 05:16 | Obstetrical Progress Note ---
Date of Service <Lázaro Washington MD - Last Filed: 04/20/19 07:32> April 20, 2019 Assessment & Plan <Lázaro Washington MD - Last Filed: 04/20/19 07:32> Day #:: 2 ([23 y/o s/p vaginal delivery @41+3] -PPD#2 - GBS neg., Blood Type A+ - Feels well today. Eating well, voiding well, ambulating well. - Pain well controlled. - Routine post care - After discharge will have [address] Rubalcava.) <Paige Cohen MD, FACOG - Last Filed: 04/20/19 07:44> Ambulation: ambulating normally Voiding: no voiding problems Passing Gas:: Yes Diet Tolerance:: regular diet Lochia:: Small Feeding Type:: bottle feeding Physical Exam <Lázaro Washington MD - Last Filed: 04/20/19 07:32> OB PE General: Alert, oriented. No acute distress. Cardiac: Regular rate and rhythm, no murmurs/rubs/gallops. Respiratory: Clear to auscultation anterior and posteriorly, no wheezes/rales/rhonchi. No increased work of breathing. Symmetrical chest rise. No respiratory distress. Abdomen: Soft, nontender, nondistended. Bowel sounds present. Uterus: Uterine fundus firm, palpable 1 cm below umbilicus. Lower Extremities: No lower extremity edema or swelling. No deep calf pain. Alma's negative bilaterally. OB ROS Denies fever, chills, sweats Denies shortness of breath, difficulty breathing, chest pain, palpitations, chest pressure. Denies breast pain. Denies dysuria. Denies headache. Results & Data <Lázaro Washington MD - Last Filed: 04/20/19 07:32> Vital Signs (Past 12 Hours) Vital Signs Temp Pulse Resp BP Pulse Ox 04/19/19 23:07 36.8 C 83 16 124/74 98 04/19/19 19:24 36.8 C 103 H 16 118/70 98 <Paige Cohen MD, FACOG - Last Filed: 04/20/19 07:44> Co-Signing Physician Notes Resident Physician Supervision Note: I interviewed and examined the patient. Discussed with Dr. Washington and agree with findings and plan as documented in the note. Any exceptions or clarifications are listed here: Doing well, plan d/c after SS sees today. Instructions reviewed. Documented By: Paige Cohen MD, FACOG
--- NOTE | 2019-04-20 07:42 | Obstetrical Progress Note ---
Date of Service <Lázaro Washington MD - Last Filed: 04/20/19 07:42> April 20, 2019 Assessment & Plan <Lázaro Washington MD - Last Filed: 04/20/19 07:42> Day #:: 2 ([23 y/o s/p vaginal delivery @41+3] -PPD#2 - GBS neg., Blood Type A+ - Feels well today. Eating well, voiding well, ambulating well. - Pain well controlled. - Routine post care - After discharge will have [address] Rubalcava) Subjective <Lázaro Washington MD - Last Filed: 04/20/19 07:42> Ambulation: ambulating normally Voiding: no voiding problems Passing Gas:: Yes Diet Tolerance:: regular diet Lochia:: Moderate Feeding Type:: breast feeding Current Pain Level(1-10): 1 Physical Exam <Lázaro Washington MD - Last Filed: 04/20/19 07:42> OB PE General: Alert, oriented. No acute distress. Cardiac: Regular rate and rhythm, no murmurs/rubs/gallops. Respiratory: Clear to auscultation anterior and posteriorly, no wheezes/rales/rhonchi. No increased work of breathing. Symmetrical chest rise. No respiratory distress. Abdomen: Soft, nontender, nondistended. Bowel sounds present. Uterus: Uterine fundus firm, palpable at the umbilicus. Lower Extremities: No lower extremity edema or swelling. No deep calf pain. Alma's negative bilaterally. OB ROS Denies fever, chills, sweats Denies shortness of breath, difficulty breathing, chest pain, palpitations, chest pressure. Denies breast pain. Denies dysuria. Denies headache. Results & Data <Lázaro Washington MD - Last Filed: 04/20/19 07:42> Vital Signs (Past 12 Hours) Vital Signs Temp Pulse Resp BP Pulse Ox 04/20/19 07:34 36.6 C 86 16 140/96 04/19/19 23:07 36.8 C 83 16 124/74 98 <Paige Cohen MD, FACOG - Last Filed: 04/20/19 08:05> Co-Signing Physician Notes Resident Physician Supervision Note: I interviewed and examined the patient. Discussed with Dr. Washington and agree with findings and plan as documented in the note. Any exceptions or clarifications are listed here: Doing well, plan d/c after SS sees today. Instructions reviewed. Documented By: Paige Cohen MD, FACOG
[2019-04-20] MEDS: PRENATAL VITAMIN 1 TAB PO SCH (08:00)
[2019-04-20] MEDS: DOCUSATE SODIUM 100 MG CAP PO SCH (08:00)
[2019-04-20] MEDS: IBUPROFEN 600 MG TAB PO PRN ×2 (08:00→13:57)
[2019-04-20] MEDS ORDERED: DIPHTHERIA/TETANUS/PERTUSSIS 0.5 ML SYR/VIAL IM ONE (09:00)
== END 2019-04-20 14:25 | disposition home or self-care (01) | DRG 807 ==
LOC: 4S1 07:44 → 4S2 04-19 01:55

== ENCOUNTER 2021-02-22 22:57 | Inpatient (IN) ==
[2021-02-22] MEDS ORDERED: OXYTOCIN 30 UNITS/500 ML BAG IV PRN (22:58)
[2021-02-22] MEDS ORDERED: LACTATED RINGER'S 1,000 ML IV PRN (22:58)
--- NOTE | 2021-02-22 23:06 | History & Physical Report ---
Date of Service February 22, 2021 Assessment & Plan (1) Normal labor: Admission and Anticipated Discharge Date Admission Date: February 22, 2021 admit, rapidly progressing, fetus category one. anticipate . History of Present Illness Chief Complaint: contractions, rom Primary Care Provider: Starr Rivera DO Patient is a 25yowf with iup at39 4/7 weeks who called this evening complaining of contractions every 5 min. Lives an hour away. Invited in. [place] [address] in she had srom. She is very uncomfortable. complicated by hx of maternal ASD. 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 Baby UFA. labs--A/ab-/ri/rprnr/hepb-/hiv-/gtt x 2 nl/gc/ct neg/gbs neg. Declined genetics cf/sma. Allergies Allergy/AdvReac Type Severity Reaction Status Date / Time amoxicillin Allergy Intermediate Rash/Hives Verified 02/19/21 16:33 Home Medications Medication Instructions Recorded Confirmed Type triamcinolone acetonide 0.1 % 1 appln TOP BID PRN gm 03/11/20 02/19/21 History topical cream multivitamin 1 tab PO DAILY 07/17/20 02/19/21 History ferrous sulfate PO 08/21/20 02/19/21 History Patient History Medical History Anemia Anxiety and depression Laryngopharyngeal reflux Os trigonum syndrome Sinus venosus defect Surgical History H/O oral surgery tooth extraction H/O wisdom tooth extraction History of tonsillectomy and adenoidectomy Hx of heart surgery sinus venosis correction Family History Grandfather (Maternal) Chronic cardiac disorder Stroke FH: deafness or hearing loss Hypertension Sinusitis Grandmother (Maternal) Neuroendocrine cancer Denies family history of FHx: allergies Ovarian cancer Prostate cancer Myocardial infarction Adverse anesthesia outcome Breast cancer Bleeding disorder Colorectal cancer Asthma Social History (Updated 08/03/20 @ 14:33 by Starr Rivera DO) Smoking Status: Never smoker Hx Alcohol Use: No Hx Substance Use: No Preferred Language: Icelandic Communication Ability: Effective Visual Impairment: Limited Hearing Ability: Normal Construction Lineman Required: No Beliefs That Will Affect Care: None marital status: marital status details: FOB#1 not involved, FOB#2 not involved Current Living Situation: Parent Current Living Situation Comment: lives with mom, son, no pets current occupational status: employed current occupation: [employer] Feels Safe at Home: Yes Childhood Exposure to Second-Hand Smoke: No caffeine: Yes (Coffee occasionally.) during the past year weight has: remained stable Dental Care, Regularly: Yes Physical Activity Frequency: Daily Seatbelt Use: always Sunscreen Use: Yes Assistive Devices: Glasses OB History cx--7/100/-1 toco--q 2min efm--120s with mod variability, accels present, no decels Results & Data ([facility]) Vital Signs (Past 12 Hours) Vital Signs Pulse BP 02/22/21 23:01 88 141/82 H Code Status & VTE Plan VTE Prophylaxis Plan VTE Prophylaxis will be ordered: No Coding Level of Care Code None Diagnoses Normal labor O80; Z37.9
[2021-02-22] MEDS ORDERED: OXYTOCIN 30 UNITS/500ML NSS ONE (23:08)
[2021-02-22] MEDS ORDERED: LIDOCAINE 1% LOCAL 20 ML VIAL ONE (23:15)
--- NOTE | 2021-02-22 23:45 | Delivery Summary ---
Vaginal Delivery Summary Date of Service February 22, 2021 Pre-operative Diagnosis: at 39 weeks labor srom Post-operative Diagnosis: same Procedure: repair of second degree laceration and right labial EBL: 400cc Anesthesia: local infiltration of lidocaine Procedure: The patient progressed quickly to c/c/+1. The patient pushed for about three contractions to deliver a viable infant in troy position. The nose and mouth were bulb suctioned on the perineum and the rest of the infant was then delivered without difficulty. The baby was vigorous. The nose and mouth were again bulb suctioned, the Cord was clamped and cut and infant taken immediately to the warmer as patient did not desire to hold or see the baby. Cord blood and segment obtained. Placenta delivered spontaneous, intact with a three vessel cord. Cervix/sulci/rectum were intact. A second degree perineal laceration and right labial laceration were repaired in the normal standard fashion after infiltrating the area with lidocaine. Hemostasis obtained with dilute pitocin and fundal massage. Apgars were pending. Mother and baby doing well at the end of the delivery. Vaginal Delivery Summary and 2nd Degree LAC [facility] Vaginal Delivery Charge Delivery Type Details: and 2nd Degree LAC
[2021-02-23] MEDS ORDERED: SUPERCREAM 0.870% 15 GM JAR EXT PRN (00:14)
[2021-02-23] MEDS ORDERED: HYDROCORTISONE ACETATE 25 MG SUPP PR PRN (00:14)
[2021-02-23] MEDS ORDERED: DIPHTHERIA/TETANUS/PERTUSSIS 0.5 ML SYR/VIAL IM ONE (00:14)
[2021-02-23] MEDS ORDERED: ACETAMINOPHEN 325 MG TAB PO PRN (00:14)
[2021-02-23] MEDS ORDERED: bisacodyL 10 MG SUPP PR PRN (00:14)
[2021-02-23] MEDS ORDERED: OXYTOCIN 30 UNITS/500 ML BAG IV PRN (00:14)
[2021-02-23] MEDS ORDERED: ACETAMINOPHEN W/CODEINE #3 1 TAB PO PRN (00:14)
[2021-02-23] MEDS ORDERED: BENZOCAINE 20% AER SPR 82.5 GM CAN EXT PRN (00:14)
[2021-02-23] MEDS: IBUPROFEN 600 MG TAB PO PRN ×2 (00:26→09:30)
[2021-02-23 02:55] LABS: Hematocrit (blood only) 37.9 % (37-47); Hemoglobin 13.1 g/dL (12.0-16.0); Mean Corpuscular Hemoglobin 31.2 pg (25-34); Mean Corpuscular Hgb Conc 34.6 g/dL (32-36); Mean Corpuscular Volume 90.2 fL (80-100); Mean Platelet Volume 9.1 fL (7.4-10.4); Platelet Count 218 K/uL (130-400); RDW Coefficient of Variation 13.5 % (11.5-14.5); RDW Standard Deviation 44.3 fL (36.4-46.3); White Blood Count 15.52 K/uL (4.8-10.8)
[2021-02-23 06:12] LABS: Hemoglobin 12.1 g/dL (12.0-16.0)
--- NOTE | 2021-02-23 06:36 | Obstetrical Progress Note ---
Date of Service <Darian Flores MD - Last Filed: 02/23/21 07:06> February 23, 2021 Assessment & Plan <Darian Flores MD - Last Filed: 02/23/21 07:06> (1) state: 25 y/o 39w4d s/p on 02/22/21, PPD1. 2nd deg lac. A pos RI. - 02/23 cbc reviewed - meeting PPD1 milestones - continue routine care - tentative dispo 02/24 Subjective <Darian Flores MD - Last Filed: 02/23/21 07:06> Ambulation: ambulating normally Voiding: no voiding problems Passing Gas:: Yes Diet Tolerance:: regular diet Lochia:: Moderate Feeding Type:: bottle feeding Current Pain Level(1-10): 0 Patient is doing well. No complaints. Patient states baby will be adopted. Review of Systems Denies fever, chills, sweats Denies shortness of breath, chest pain, palpitations. Denies breast pain. Denies dysuria. Denies headache or changes in vision. Denies nausea/vomiting. Denies numbness, tingling, weakness. Denies calf pain. Denies mood complaints. Physical Exam <Darian Flores MD - Last Filed: 02/23/21 07:06> General: Alert, oriented. No acute distress. Cardiac: Regular rate and rhythm, no murmurs/rubs/gallops. Respiratory: Clear to auscultation bilaterally, no wheezes/rales/rhonchi. No respiratory distress. Abdomen: , soft, nontender. Uterus: Uterine fundus firm, palpable 1cm below umbilicus, to the right Lower Extremities: No lower extremity edema or swelling. No deep calf pain. Alma's negative bilaterally. Results & Data ([facility]) <Darian Flores MD - Last Filed: 02/23/21 07:06> Vital Signs (Past 12 Hours) Vital Signs Temp Pulse Pulse Pulse Resp BP BP 02/23/21 04:25 37.0 C 84 18 124/74 02/23/21 02:00 36.6 C 92 H 20 133/83 02/23/21 01:35 93 H 18 117/65 02/23/21 01:20 88 119/58 L 02/23/21 01:05 95 H 18 129/64 02/23/21 00:50 69 138/65 02/23/21 00:35 72 18 138/66 02/23/21 00:20 72 18 140/63 02/23/21 00:05 75 18 150/70 H 02/22/21 23:50 72 18 145/72 H 02/22/21 23:35 86 18 141/84 H 02/22/21 23:02 36.7 C 20 02/22/21 23:01 88 141/82 H Pulse Ox 02/23/21 04:25 99 02/23/21 02:00 97 02/23/21 01:35 02/23/21 01:20 02/23/21 01:05 02/23/21 00:50 02/23/21 00:35 02/23/21 00:20 02/23/21 00:05 02/22/21 23:50 02/22/21 23:35 02/22/21 23:02 02/22/21 23:01 Medications Administered <Paige Cohen MD, FACOG - Last Filed: 02/23/21 07:51> Co-Signing Physician Notes Resident Physician Supervision Note: I interviewed and examined the patient. Discussed with Dr. Flores and agree with findings and plan as documented in the note. Any exceptions or clarifications are listed here: Doing well this am. Routine PPD1 activities. This [facility]. The adoptive parents are here. Will get ss consult just to make sure everything in order. [facility]. Discussed that we usually keep term delivered patients for 24 hours. She may elect to leave at 24 which would be after 11pm tonight. It depends on transportation with her mother and child. Documented By: Paige Cohen MD, FACOG
[2021-02-23] MEDS ORDERED: DOCUSATE SODIUM 100 MG CAP PO SCH (08:00)
[2021-02-23] MEDS ORDERED: PRENATAL VITAMIN 1 TAB PO SCH (08:00)
[2021-02-23] MEDS ORDERED: bisacodyL 5 MG TABEC PO SCH (20:00)
== END 2021-02-23 17:25 | disposition home or self-care (01) | DRG 807 ==
LOC: 4S1 22:57 → 4S2 02-23 02:13